=== PATIENT | male | born 1965 | race American Indian/Alaskan Native ===

== ENCOUNTER 2017-12-03 17:52 | Emergency (ER) | payer OTHER ==
[2017-12-03 17:52] VITALS: BMI 29.9
[2017-12-03 18:10] VITALS: TEMP 98.3; O2SAT 95
--- NOTE | 2017-12-03 18:32 | ED PDOC ---
Arrival/HPI - General Chief Complaint: Allergic Reaction Time Seen by Provider: 12/03/17 18:12 Historian: Patient - History of Present Illness Narrative History of Present Illness (Text): 12/03/17 18:26 52 y/o male with PMH of HTN who presents to the ED c/o facial swelling x 1 day. Pt states he ate crab meat last night and awoke this morning with swelling in his forehead and around his eyes. He took 25mg of Benadryl at 6am and 50mg at 2: 30pm. Pt experienced a similar episode a few months ago after eating crab and was treated in [facility] ED successfully with IV steroids and discharged home. Denies difficulty breathing, wheezing, mouth or lip swelling, itching, skin rash, headache, dizziness, fever, changes in vision. NKDA Symptom Onset: Gradual Symptom Course: Worsening Quality: Pressure (face), Tightness (face) Severity Level: Mild Past Medical History - Provider Review Nursing Documentation Reviewed: Yes - Cardiac Hx Cardiac Disorders: Yes Hx Hypertension: Yes - Pulmonary Hx Respiratory Disorders: No - Neurological Hx Neurological Disorder: No - HEENT Hx HEENT Disorder: No - Renal Hx Renal Disorder: No - Endocrine/Metabolic Hx Endocrine Disorders: No - Hematological/Oncological Hx Blood Disorders: No - Integumentary Hx Dermatological Disorder: No - Musculoskeletal/Rheumatological Hx Musculoskeletal Disorders: Yes Hx Arthritis: Yes - Gastrointestinal Hx Gastrointestinal Disorders: No - Genitourinary/Gynecological Hx Genitourinary Disorders: No - Psychiatric Hx Psychophysiologic Disorder: No Hx Substance Use: No - Anesthesia Hx Anesthesia: No - Suicidal Assessment Feels Threatened In Home Enviroment: No Family/Social History - Physician Review Nursing Documentation Reviewed: Yes Family/Social History: No Known Family HX Smoking Status: Never Smoked Hx Alcohol Use: Yes Hx Substance Use: No Allergies/Home Meds Allergies/Adverse Reactions: Allergies shellfish derived Allergy (Verified 12/03/17 17:54) SWELLING Home Medications: Home Meds Medication Instructions Recorded Confirmed Amlodipine Besylate/Benazepril 1 tab PO DAILY 06/06/17 12/03/17 [Lotrel 10-40 mg Capsule] Review of Systems - Physician Review All systems were reviewed & negative as marked: Yes - Review of Systems Constitutional: Normal Eyes: Other (swelling of skin around eyes). absent: Vision Changes, Eye Pain ENT: Normal Respiratory: Normal. absent: SOB, Wheezing Cardiovascular: Normal Gastrointestinal: Normal. absent: Nausea, Vomiting Musculoskeletal: Normal Skin: Other (edema over forehead and around eyes). absent: Rash, Pruritis, Skin Lesions, Laceration, Abscess, Cellulitis Neurological: absent: Headache, Dizziness Hemo/Lymphatic: absent: Adenopathy Physical Exam Vital Signs Reviewed: Yes Vital Signs Temp Pulse Resp BP Pulse Ox 12/03/17 17:54 98.3 F 81 16 153/93 H 95 Temperature: Afebrile Blood Pressure: Hypertensive (known history of HTN, took medicine this AM. followed by PMD.) Pulse: Regular Respiratory Rate: Normal Appearance: Positive for: Well-Appearing, Non-Toxic, Comfortable Pain Distress: None Mental Status: Positive for: Alert and Oriented X 3 - Systems Exam Head: Present: Atraumatic, Swelling (forehead, around eyes). No: Tenderness, Contusion, Ecchymosis, Abrasion, Laceration Pupils: Present: PERRL Extroacular Muscles: Present: EOMI Conjunctiva: Present: Normal Pharnyx: Present: Normal. No: TONSILS ENLARGED, Peritonsilar Swelling, Uvular Deviation, Strider, Soft Palate/Uvular Edema Nose (Internal): No: Edematous Neck: Present: Normal Range of Motion. No: Other (swelling) Respiratory/Chest: Present: Clear to Auscultation Cardiovascular: Present: Regular Rate and Rhythm Upper Extremity: Present: Normal Inspection Lower Extremity: Present: Normal Inspection Skin: Present: Warm, Dry, Normal Color, Other (swelling over forehead and around eyes b/l). No: Rashes, Erythematous Lymphatic: No: Cervical Adenopathy Psychiatric: Present: Alert, Oriented x 3, Normal Insight, Normal Concentration Medical Decision Making ED Course and Treatment: 12/03/17 18:32 52 y/o male with PMH of HTN who presents to the ED c/o facial swelling x 1 day. Pt states he ate crab meat last night and awoke this morning with swelling in his forehead and around his eyes. He took 25mg of Benadryl at 6am and 50mg at 2: 30pm. Pt experienced a similar episode a few months ago after eating crab and was treated in [facility] ED successfully with IV steroids and discharged home. Denies difficulty breathing, wheezing, mouth or lip swelling, itching, skin rash, headache, dizziness, fever, changes in vision. Physical exam reveals mild swelling over the forehead and around the eyes. No swelling of the mouth, lips, or pharynx. Lungs clear to auscultation. Will give 125mg IV solumedrol Will give 20mg IV pepcid Will wait to give IV benadryl (pt took 50mg PO at 14:30) Case discussed with Dr. Cabral who agrees 12/03/17 18:43 Pt reassessed. Pt states he still feels swollen but is improving. Will discharge home with course of Prednisone and pepcid with instructions to return if difficulty breathing. 12/03/17 19:13 Impression: Allergic reaction Plan: Take 1 tab Prednisone by mouth every morning for 5 days Take 1 tab Pepcid by mouth every morning for 5 days Take 1-2 tabs Benadryl by mouth every 6 hours as needed Avoid shellfish to prevent worsening allergy Followup with primary doctor within 2 days Return to ED if symptoms persist or worsen (difficulty breathing, swelling of throat, mouth, or lips) Plan discussed with pt who understands and agrees. Pt comfortable with discharge home. Re-evaluation Time: 16:50 Reassessment Condition: Improving,but remains with symptoms - Medication Orders Current Medication Orders: Discontinued Medications Famotidine (Pepcid) 20 mg IVP STAT STA Stop: 12/03/17 18:16 Last Admin: 12/03/17 18:24 Dose: 20 mg IVP Administration Document 12/03/17 18:24 GMD (Rec: 12/03/17 18:24 GMD [id number]) Charges for Administration # of IVP Administrations 1 Methylprednisolone (Solu-Medrol) 125 mg IVP STAT STA Stop: 12/03/17 18:16 Last Admin: 12/03/17 18:24 Dose: 125 mg IVP Administration Document 12/03/17 18:24 GMD (Rec: 12/03/17 18:24 GMD [id number]) Charges for Administration # of IVP Administrations 1 Disposition/Present on Arrival - Present on Arrival Any Indicators Present on Arrival: No History of DVT/PE: No History of Uncontrolled Diabetes: No Urinary Catheter: No History of Decub. Ulcer: No History Surgical Site Infection Following: None - Disposition Have Diagnosis and Disposition been Completed?: Yes Diagnosis: Allergic reaction Disposition: HOME/ ROUTINE Disposition Time: 18:45 Patient Plan: Discharge Patient Problems: Current Active Problems Problem Status Onset Allergic reaction Acute Condition: IMPROVED Additional Instructions: Take 1 tab Prednisone by mouth every morning for 5 days Take 1 tab Pepcid by mouth every morning for 5 days Take 1-2 tabs Benadryl by mouth every 6 hours as needed Avoid shellfish to prevent worsening allergy Followup with primary doctor within 2 days Return to ED if symptoms persist or worsen (difficulty breathing, swelling of throat, mouth, or lips) Prescriptions: Famotidine [Pepcid] 20 mg PO DAILY #5 tab predniSONE [Prednisone] 20 mg PO DAILY #5 tab Referrals: [employer] [facility] [Outside] - Follow up with primary Amanda Carter MD [Medical Doctor] - Follow up with primary Forms: [employer] (Lao), WORK NOTE
[2017-12-03 19:31] VITALS: BP 152/96; PULSE 67; RESP 18
== END 2017-12-03 19:32 | disposition home or self-care (01) ==
LOC: ED 17:52
DX: T78.49XA Other allergy, initial encounter (principal); X58.XXXA Exposure to other specified factors, initial encounter
CPT/HCPCS: 96374; 96375; 99284; J2930